=== PATIENT | male | born 1970 | race Caucasian/White ===

== ENCOUNTER → 2019-05-08 | Outpatient (CLI) | payer BC, OTHER ==
--- NOTE | 2019-05-09 01:44 | REP ---
Clinical: Shortness of breath. Technique: PA and lateral. Comparison: None. Findings: Trace right basilar atelectasis cannot be excluded. Correlation with auscultation is recommended. No further consolidation, obvious effusion, or pneumothorax. Mediastinum and cardiac silhouette normal. Skeletal structures intact. Impression: Questionable trace right basilar atelectasis. Electronically Signed by Theodore Avendano MD 05/09/2019 01:36 A
== END ==
LOC: M SMT 10:42
PROVIDERS: ATTEND Internal Medicine Cardiovascular Disease
DX: R06.02 Shortness of breath (principal)

== ENCOUNTER → 2021-05-03 | Outpatient (CLI) | payer BC, OTHER | LOC: M PLAIMG 14:05 | PROVIDERS: ATTEND Physician Assistant | DX: J98.11 Atelectasis (principal); R06.00 Dyspnea, unspecified ==